=== PATIENT | male | born 1995 | race Caucasian/White ===

== ENCOUNTER 2025-05-02 16:04 | Emergency (ER) | payer OTHER ==
[~2025-05-02] VITALS: Ht 170.2 cm; Wt 107.8 kg
[2025-05-02 16:50] LABS: BASO # 0.1 10^3/uL (0.0-0.2); BASO % 0.6 % (0.0-1.0); EOS # 0.1 10^3/uL (0.0-0.5); EOS % 1.4 % (0.0-3.0); LYMPH # 3.2 10^3/uL (1.5-5.0); LYMPH % 35.3 % (24.0-44.0); MONO # 0.5 10^3/uL (0.0-0.8); MONO % 5.7 % (2.0-8.0); NEUTROPHILS # 5.1 10^3/uL (1.5-8.5); NEUTROPHILS % 56.6 % (36.0-66.0); PLATELET COUNT, AUTOMATED 347 10^3/uL (150-450)
[2025-05-02 17:22] LABS: CK-MB VALUE MASS < 1.0 NG/ML (<3.6)
[2025-05-02 17:25] LABS: ALT/SGPT 95 U/L (7.0-40); AST/SGOT 51 U/L (<34); CALCIUM LEVEL 9.1 MG/DL (8.5-10.1); CARBON DIOXIDE LEVEL 27 MMOL/L (20-31); CHLORIDE LEVEL 102 MMOL/L (98-107); CREATININE FOR GFR 0.96 MG/DL (0.70-1.30); GLOMERULAR FILTRATION RATE > 90.0 (>60); POTASSIUM SERUM 4.3 MMOL/L (3.5-5.1); SODIUM LEVEL 140 MMOL/L (136-145)
[2025-05-02 17:32] LABS: CPK CREATINE PHOSPHOKINASE 132 U/L (46-171)
[2025-05-02 18:18] VITALS: BP 133/84; TEMP 97.2; O2SAT 99
[2025-05-02] MEDS ORDERED: VENTAER INH (20:04)
== END 2025-05-02 20:12 | disposition home or self-care (01) ==
LOC: M ED 16:04
DX: R07.89 Other chest pain (principal); Z79.51 Long term (current) use of inhaled steroids